=== PATIENT | female | born 1980 ===

== ENCOUNTER → 2018-09-23 23:08 | Outpatient (ROUT) | payer OTHER, SELFPAY ==
[2018-09-24 03:07] LABS: Add Manual Diff / Slide Review NO; Basophils Absolute Auto 100 /uL (0-100); Eosinophils Absolute Auto 100 /uL (0-450); Eosinophils Percent Auto 1.5 % (2-4); Hematocrit 40.4 % (36-46); Hemoglobin 13.8 g/dL (12.0-16.0); Lymphocytes Absolute Auto 1900 /uL (1100-4500); Lymphocytes Percent Auto 37.4 % (25-40); Mean Corpuscular HGB Conc 34.1 % (30-36); Mean Corpuscular Hemoglobin 30.2 PG (26-34); Mean Corpuscular Volume 88.5 fL (80-100); Monocytes Absolute Auto 400 /uL (0-900); Neutrophils Absolute Auto 2700 /uL (1500-7000); Neutrophils Percent Auto 53.1 % (50-75); Platelet Count 190 X10^3/uL (150-400); Red Blood Cell Count 4.56 X10^6/uL (4.0-5.2); Red Cell Distribution Width 13.9 % (11.6-14.8); White Blood Cell Count 5.1 X10^3/uL (4.5-11.0)
[2018-09-24 03:11] LABS: HEMOLYSIS < 15 (0-50)
[2018-09-24 03:18] LABS: HEMOLYSIS < 15 (0-50); Iron 82 ug/dL (37-170)
[2018-09-24 03:19] LABS: Alanine Aminotransferase 7 IU/L (9-52); Albumin 4.1 g/dL (3.5-5.0); Albumin Globulin Ratio 1.5 (1.0-2.8); Alkaline Phosphatase 48 U/L (38-126); Aspartate Aminotransferase 15 IU/L (14-36); BUN Creatinine Ratio 16.3 (6-22); Bilirubin Total 0.8 mg/dL (0.2-1.3); Blood Urea Nitrogen 13 mg/dL (7-17); Calcium 9.6 mg/dL (8.4-10.2); Carbon Dioxide 26 mmol/L (22-32); Chloride 107 mmol/L (98-107); Cholesterol 165 mg/dL (140-199); Estimated Glomerular Filt Rate > 60.0 mL/min (>60); Globulin 2.7 g/dL (1.7-4.1); Glucose 94 mg/dL (70-100); HDL Cholesterol 61 mg/dL (40-60); LDL Cholesterol Calculated 95 mg/dL (<100); Sodium 140 mmol/L (137-145); Total Protein 6.8 g/dL (6.3-8.2); Triglycerides 46 mg/dL (35-150)
[2018-09-24 03:31] LABS: Percent Iron Saturation 22 % (15-50); Total Iron Binding Capacity 380 ug/dL (265-497); Transferrin 306 mg/dL (206-381)
[2018-09-24 03:36] LABS: Free T3, Triiodothyronine Free 5.41 pg/mL (2.77-5.27); Free T4, Direct Thyroxine 0.68 ng/dL (0.78-2.19); Triiodothryronine T3 Uptake 27.1 % (23.5-40.5)
[2018-09-24 03:40] LABS: Erythrocyte Sedimentation Rate 3 MM/HR (0-20)
[2018-09-24 05:59] LABS: Folate 6.6 ng/mL (2.76-20.0); Vitamin B12 399 pg/mL (239-931)
[2018-09-26 14:30] LABS: Triiodothyronine T3 Total 186 ng/dL (76-181)
[2018-09-26 15:36] LABS: Thyroid Peroxidase Antibodies 135 IU/mL (< 9)
[2018-09-26 15:37] LABS: Anti Thyroglobulin Antibody < 1 IU/mL (< 2); Thyroid Peroxidase Antibodies 124 IU/mL (< 9)
== END ==
PROVIDERS: Visit Provider Family Medicine
DX: D50.9 Iron deficiency anemia, unspecified (principal); E03.9 Hypothyroidism, unspecified; R53.1 Weakness
CPT/HCPCS: 36415; 80053; 80061; 82607; 82746; 83540; 83550; 84439; 84443; 84479; 84480; 84481; 84482; 85025; 85651; 86376; 86800